=== PATIENT | female | born 1950 | race Caucasian/White ===

== ENCOUNTER → 2016-06-19 | Outpatient (CLI) | payer MEDICARE, BC ==
[~2016-06-19] MED LIST: EPA FISH OIL1000 MG PO; LEVOTHYROXIN0.075 MG PO; LIPITOR 10MG10 MG PO; LUTEIN6 MG PO; MUCOMYST 4 ML4 M1 IH; PREDNISONE10 MG PO; PREDNISONE20 MG PO; PRILOSEC 10MG10 MG PO
== END ==
LOC: COL.PUL 09:54
DX: J84.10 Pulmonary fibrosis, unspecified (principal)

== ENCOUNTER → 2016-06-28 | Outpatient (REF) | LOC: ZLAB.WCH 14:43 | DX: Z01.89 Encounter for other specified special examinations (principal) ==

== ENCOUNTER → 2016-08-30 | Outpatient (REF) | LOC: ZLAB.WCH 15:16 | DX: Z01.89 Encounter for other specified special examinations (principal) ==

== ENCOUNTER → 2017-07-17 | Outpatient (REF) | LOC: ZLAB.WCH 16:03 | DX: Z01.89 Encounter for other specified special examinations (principal) ==